=== PATIENT | female | born 1985 | race Asian ===

== ENCOUNTER 2023-12-21 09:14 | Emergency (ER) | payer OTHER ==
[2023-12-21] MEDS ORDERED: predniSONE 20 MG TAB ONE (09:51)
--- NOTE | 2023-12-21 10:08 | EDPHYS ---
Physician Documentation [facility] Name: Divine Tipton Age: 38 yrs Sex: Female : 1985 Arrival Date: 12/21/2023 Time: 09:14 Bed 5 Private MD: ED Physician Roger Richardson HPI: 12/20 09:39 This 38 yrs old Female presents to ER via Ambulatory with complaints of Eye ec2 Problem, Sore Throat. 09:39 Patient arrives today for evaluation of sore throat as well as conjunctival redness. ec2 Patient reports that she has been having some eye discomfort for the past several days also complaining of a hoarse voice as well as sore throat and cough. Patient reports no fevers or chills, nausea or vomiting.. Historical: - Allergies: 09:33 PENICILLINS; ap3 - PMHx: 09:33 Asthma; ap3 - Immunization history:: Adult Immunizations up to date. - Infectious Disease History:: Denies. - Social history:: Smoking status: Patient denies any tobacco usage or history of. ROS: 09:39 Constitutional: as per hpi ec2 Exam: 09:39 Constitutional: GEN: NAD Head: atraumatic Eyes: EOMI, bilateral conjunctival ec2 injection with no pain with range of motion. Intact bilateral pupillary reflexes. Ears: External ears are normal. Bilateral tympanic membranes are clear. Mouth: Posterior oropharynx with erythema, no exudates. CV: regular rate LUNGS: no respiratory distress, no wheezes, rales, or rhonchi ABD: non-distended, soft, nontender, guarding, not rigid SKIN: no evidence of rashes MSK: no evidence of trauma NEURO: moves all extremities equally Vital Signs: 09:31 Pulse 100; Resp 18; Temp 98.2(O); Pulse Ox 97% on R/A; Weight 90.72 kg; Height 5 ft. 0 ap3 in. ; Pain 2/10; 09:34 BP 135 / 73; ap3 10:09 BP 130 / 74; Pulse 80; Resp 18; Temp 98.2; Pulse Ox 99% on R/A; rs5 09:31 Body Mass Index 39.06 (90.72 kg, 152.4 cm) ap3 09:31 Pain Scale: Adult ap3 MDM: 09:28 Patient medically screened. ec2 09:39 Data reviewed: vital signs. ec2 09:41 ED course: Patient arrives today for URI signs symptoms along with eye irritation. ec2 Examination remarkable for HEENT findings as above. Suspect viral infection, will also swab for strep. Additionally suspect conjunctivitis.. 10:04 ED course: Strep swab negative, suspect viral infection. Will discharge home. Return ec2 precautions given.. 12/20 09:38 Order name: Strep ec2 12/20 10:02 Order name: Throat Culture EDMS Administered Medications: 09:40 Drug: predniSONE PO 40 mg PO once Route: PO; rs5 10:11 Follow up: Response: No adverse reaction rs5 Disposition Summary: 12/21/23 10:07 Discharge Ordered Notes: Location: Home ec2 Condition: Stable ec2 Diagnosis - Viral infection, unspecified ec2 - Unspecified conjunctivitis ec2 Followup: ec2 - With: Private Physician - When: - Reason: Re-evaluation by your physician Discharge Instructions: - Discharge Summary Sheet ec2 - Bacterial Conjunctivitis, Adult, [id number] ec2 - Viral Illness, Adult ec2 Forms: - Medication Reconciliation Form ec2 - Antibiotic Education ec2 - Prescription Opioid Use ec2 - Patient Portal Instructions ec2 - Leadership Thank You Letter ec2 Prescriptions: - Erythromycin 5 mg/gram (0.5 %) Ophthalmic ointment - apply 1 centimeter OPHTHALMIC route 2-3 times daily for 7 days; 1 unit; ec2 Refills: 0, Product Selection Permitted - Prednisone 20 mg Oral Tablet - take 2 tablets ORAL route once daily for 5 days; 10 tablet; Refills: 0, Product ec2 Selection Permitted Signatures: Dispatcher [employer] Margarita Carlos RN RN ap3 Rhys Marino RN RN rs5 Roger Richardson MD MD ec2 Corrections: (The following items were deleted from the chart) 09:41 09:39 Constitutional: GEN: NAD Head: atraumatic Eyes: EOMI, bilateral conjunctival ec2 injection with no pain with range of motion. Intact bilateral pupillary reflexes. Ears: External ears are normal. Bilateral tympanic membranes are clear. CV: regular rate LUNGS: no respiratory distress, no wheezes, rales, or rhonchi ABD: non-distended, soft, nontender, guarding, not rigid SKIN: no evidence of rashes MSK: no evidence of trauma NEURO: moves all extremities equally ec2
--- NOTE | 2023-12-21 10:08 | ER ---
Nurse's Notes [facility] Name: Divine Tipton Age: 38 yrs Sex: Female : 1985 Arrival Date: 12/21/2023 Time: 09:14 Bed 5 Private MD: Diagnosis: Viral infection, unspecified;Unspecified conjunctivitis Presentation: 12/20 09:31 Chief complaint: Patient states: she started having congested, bilateral eye swelling, ap3 and a hoarseness in her voice starting Wednesday12/17/23. patient also reports intermittent fevers during this time. Coronavirus screen: Client presents with at least one sign or symptom that may indicate coronavirus-19. Ebola Screen: No symptoms or risks identified at this time. Initial Sepsis Screen: Does the patient meet any 2 criteria? HR > 90 bpm. No. Patient's initial sepsis screen is negative. Does the patient have a suspected source of infection? No. Patient's initial sepsis screen is negative. Risk Assessment: Do you want to hurt yourself or someone else? Patient reports no desire to harm self or others. Onset of symptoms was December 17, 2023. 09:31 Method Of Arrival: Ambulatory ap3 09:31 Acuity: RAIMUNDO 3 ap3 Triage Assessment: 09:34 General: Appears in no apparent distress. Behavior is calm, cooperative, Reports chills ap3 for fever for feeling ill for fatigue for. Pain: Complains of pain in throat. EENT: Reports pain when swallowing. EENT: Sclera/Cornea are reddened in outer aspect of conjuctiva of right eye, inner aspect of conjuctiva of right eye, outer aspect of conjuctiva of left eye and inner aspect of conjunctiva of left eye. Neuro: Level of Consciousness is awake, alert, obeys commands, Oriented to person, place, time, situation. Cardiovascular: Patient's skin is warm and dry. Respiratory: Airway is patent Respiratory effort is even, unlabored, Respiratory pattern is regular, symmetrical. Historical: - Allergies: 09:33 PENICILLINS; ap3 - PMHx: 09:33 Asthma; ap3 - Immunization history:: Adult Immunizations up to date. - Infectious Disease History:: Denies. - Social history:: Smoking status: Patient denies any tobacco usage or history of. Screenin:35 [facility] ED Fall Risk Assessment (Adult) History of falling in the last 3 months, ap3 including since admission No falls in past 3 months (0 pts) Confusion or Disorientation No (0 pts) Intoxicated or Sedated No (0 pts) Impaired Gait No (0 pts) Mobility Assist Device Used No (0 pt) Altered Elimination No (0 pt) Score/Fall Risk Level 0 - 2 = Low Risk Oriented to surroundings, Maintained a safe environment, Educated pt \T\ family on fall prevention, incl call for assistance when getting out of bed, Assessed \T\ reinforced patient's understanding of fall precautions, Provided non-skid footwear, Hourly rounding (assess needs \T\ fall precautionary measures) done, Used ambulatory aids as needed (educated on \T\ assisted with), Used gait belt as appropriate. Abuse screen: Denies threats or abuse. Nutritional screening: No deficits noted. Tuberculosis screening: No symptoms or risk factors identified. Assessment: 09:40 General: Appears in no apparent distress. uncomfortable, Behavior is calm, cooperative. rs5 Pain: Complains of pain in throat Pain currently is 3 out of 10 on a pain scale. Quality of pain is described as aching, Is continuous. Neuro: Level of Consciousness is awake, alert, obeys commands, Oriented to person, place, time, situation. Cardiovascular: Patient's skin is warm and dry. Rhythm is regular. Respiratory: Reports cough that is Airway is patent Respiratory effort is even, unlabored, Respiratory pattern is regular, symmetrical, Breath sounds are clear bilaterally. GI: Abdomen is round non-distended, Abd is soft and non tender X 4 quads. : No signs and/or symptoms were reported regarding the genitourinary system. EENT: Throat is reddened bilaterally redness and swelling to upper and lower eyelids bilat. Derm: Skin is pink, warm \T\ dry. Musculoskeletal: Range of motion: intact in all extremities. 10:10 Reassessment: Patient and/or family updated on plan of care and expected duration. Pain rs5 level reassessed. Patient is alert, oriented x 3, equal unlabored respirations, skin warm/dry/pink. Vital Signs: 09:31 Pulse 100; Resp 18; Temp 98.2(O); Pulse Ox 97% on R/A; Weight 90.72 kg; Height 5 ft. 0 ap3 in. ; Pain 2/10; 09:34 BP 135 / 73; ap3 10:09 BP 130 / 74; Pulse 80; Resp 18; Temp 98.2; Pulse Ox 99% on R/A; rs5 09:31 Body Mass Index 39.06 (90.72 kg, 152.4 cm) ap3 09:31 Pain Scale: Adult ap3 ED Course: 09:16 Patient arrived in ED. im 09:17 Roger Richardson MD is Attending Physician. ec2 09:33 Triage completed. ap3 09:35 Arm band placed on left wrist. ap3 09:43 Rhys Marino, RN is Primary Nurse. rs5 09:44 Strep Sent. [id number] 09:44 Strep swab sent to lab. [id number] 10:09 Patient has correct armband on for positive identification. Placed in gown. Bed in low rs5 position. Call light in reach. Side rails up X2. 10:09 No provider procedures requiring assistance completed. rs5 10:10 Patient did not have IV access during this emergency room visit. rs5 Administered Medications: 09:40 Drug: predniSONE PO 40 mg PO once Route: PO; rs5 10:11 Follow up: Response: No adverse reaction rs5 Medication: 10:09 VIS not applicable for this client. rs5 Outcome: 10:07 Discharge ordered by . ec2 10:10 Discharged to home ambulatory, rs5 10:10 Condition: stable 10:10 Discharge instructions given to patient, family, Instructed on discharge instructions, follow up and referral plans. medication usage, Demonstrated understanding of medications, Prescriptions given X 3, 10:11 Patient left the ED. rs5 Signatures: Margarita Bush RN RN ap3 Rhys Marino, XUAN GOVEA rs5 Kaleigh Sherwood Roger Richardson MD MD 2 Sonu Pendleton [email or web address] Corrections: (The following items were deleted from the chart) 10:11 10:03 predniSONE PO 40 mg PO rs5 rs5
[2023-12-21 10:30] VITALS: BP 130/74; TEMP 98.2; O2SAT 99
== END 2023-12-21 10:11 | disposition home or self-care (01) ==
LOC: ER 09:14
DX: B34.9 Viral infection, unspecified (principal); H10.9 Unspecified conjunctivitis; Z88.0 Allergy status to penicillin
CPT/HCPCS: 87070; 87081; J7512